=== PATIENT | male | born 1940 | race Caucasian/White ===

== ENCOUNTER 2020-02-28 01:35 | Emergency (ER) | payer OTHER ==
[~2020-02-28] VITALS: Ht 162.6 cm; Wt 63.0 kg
[~2020-02-28 01:35] MED LIST: DIOVAN320 MG; FENOFIBRATE145 MG; METFORMIN HCL500 M1; METOPROLOL SUC100 MG; NORVASC5 MG; PENTOXIFYLLINE400 MG
[2020-02-28] MEDS ORDERED: ASPIR 8181 MG (01:49)
[2020-02-28] MEDS ORDERED: MOBIC15 MG PO (04:46)
== END 2020-02-28 04:51 | disposition home or self-care (01) ==
LOC: ER 01:35
DX: K40.90 Unilateral inguinal hernia, without obstruction or gangrene, not specified as recurrent (principal)

== ENCOUNTER 2020-05-11 14:50 | Emergency (ER) | payer OTHER ==
[~2020-05-11] VITALS: Ht 160 cm; Wt 61.2 kg
[~2020-05-11 14:50] MED LIST changes: +ASPIR 8181 MG; +MOBIC15 MG PO
[2020-05-11] MEDS ORDERED: AMLODIPINE BESY10 MG PO (15:18)
[2020-05-11] MEDS ORDERED: ATORVASTATIN CA10 MG PO (15:18)
== END 2020-05-11 20:03 | disposition home or self-care (01) ==
LOC: ER 14:50
DX: B34.9 Viral infection, unspecified (principal); R00.2 Palpitations; I50.9 Heart failure, unspecified

== ENCOUNTER 2020-09-24 09:45 | Inpatient (IN) | payer OTHER ==
[~2020-09-24] VITALS: Ht 162.6 cm; Wt 57.2 kg
[~2020-09-24 09:45] MED LIST changes: +AMLODIPINE BESY10 MG PO; +ATORVASTATIN CA10 MG PO
[2020-09-24] MEDS ORDERED: DIOVAN320 MG (10:23)
[2020-09-24] MEDS ORDERED: TOPROL XL200 MG (10:23)
[2020-09-24] MEDS ORDERED: PLAVIX75 MG (10:24)
[2020-09-24] MEDS ORDERED: CRESTOR40 MG (10:25)
[2020-09-24] MEDS ORDERED: KEFLEX750 MG (10:27)
[2020-09-24] MEDS ORDERED: DULCOLAX10 MG (10:28)
== END 2020-09-27 13:27 | disposition home or self-care (01) | DRG 393 ==
LOC: ER 09:45 → SEC-K 20:35 → MEDI 09-25 16:43
PROVIDERS: ADMIT Internal Medicine; ATTEND Internal Medicine
PROC: BW21Y0Z Computerized Tomography (CT Scan) of Abdomen and Pelvis using Other Contrast, Unenhanced and Enhanced (ICD-10-PCS; principal; 2020-09-24)
DX: K40.90 Unilateral inguinal hernia, without obstruction or gangrene, not specified as recurrent (principal); K57.31 Diverticulosis of large intestine without perforation or abscess with bleeding; K62.5 Hemorrhage of anus and rectum; I11.9 Hypertensive heart disease without heart failure; I25.10 Atherosclerotic heart disease of native coronary artery without angina pectoris; E11.9 Type 2 diabetes mellitus without complications; E78.5 Hyperlipidemia, unspecified; R82.71 Bacteriuria; K59.00 Constipation, unspecified

== ENCOUNTER 2021-01-08 07:12 | Day surgery (SDC) | payer OTHER ==
[~2021-01-08 07:12] MED LIST changes: +ADULT LOW DOSE81 M1 PO; +AMLO PO; +CRESTOR40 MG; +CRESTOR40 MG PO; +DIOVAN320 MG PO; +DULCOLAX10 MG; +FORTAMET500 MG PO; +KEFLEX750 MG; +PLAVIX75 MG; +PLAVIX75 MG PO; +RESTORIL30 MG PO; +TOPROL XL200 MG
[2021-01-08] MEDS ORDERED: TYLENOL ARTHRI650 MG PO (11:48)
[2021-01-08] MEDS ORDERED: MIRALAX17 GM PO (11:48)
[2021-01-08] MEDS ORDERED: ULTRAM50 MG PO (11:48)
== END 2021-01-08 19:00 | disposition home or self-care (01) ==
LOC: CIR.AMB 07:12
PROVIDERS: ATTEND Surgery
DX: K40.30 Unilateral inguinal hernia, with obstruction, without gangrene, not specified as recurrent (principal); D17.6 Benign lipomatous neoplasm of spermatic cord; Z20.822 Contact with and (suspected) exposure to COVID-19

== ENCOUNTER 2021-03-29 14:56 | Emergency (ER) | payer OTHER ==
[~2021-03-29] VITALS: Ht 162.6 cm; Wt 59.0 kg
[~2021-03-29 14:56] MED LIST changes: +MIRALAX17 GM PO; +TYLENOL ARTHRI650 MG PO; +ULTRAM50 MG PO
[2021-03-29] MEDS ORDERED: AMLODIPINE-OLM1 EAC3 (15:54)
== END 2021-03-29 20:00 | disposition home or self-care (01) ==
LOC: ER 14:56
DX: G89.11 Acute pain due to trauma (principal); S51.82 Laceration with foreign body of forearm; S51.022S Laceration with foreign body of left elbow, sequela; S50.8 Other superficial injuries of forearm; S50.312S Abrasion of left elbow, sequela; W18.09XS Striking against other object with subsequent fall, sequela

== ENCOUNTER 2021-11-24 15:16 | Emergency (ER) | payer OTHER ==
[~2021-11-24] VITALS: Ht 162.6 cm; Wt 63.5 kg
[~2021-11-24 15:16] MED LIST changes: +AMLODIPINE-OLM1 EAC3
== END 2021-11-24 18:41 | disposition home or self-care (01) ==
LOC: ER 15:16
DX: R10.32 Left lower quadrant pain (principal); E11.9 Type 2 diabetes mellitus without complications; I10 Essential (primary) hypertension; E78.00 Pure hypercholesterolemia, unspecified; Z79.84 Long term (current) use of oral hypoglycemic drugs; Z79.02 Long term (current) use of antithrombotics/antiplatelets; Z79.82 Long term (current) use of aspirin

== ENCOUNTER 2024-08-18 06:23 | Emergency (ER) | payer OTHER ==
[~2024-08-18] VITALS: Ht 160 cm; Wt 64.4 kg
[2024-08-18] MEDS ORDERED: DIOVAN320 MG PO (06:46)
[2024-08-18] MEDS ORDERED: CARVEDILOL12.5 MG (06:46)
[2024-08-18] MEDS ORDERED: HYDRALAZINE HCL10 MG PO (06:47)
[2024-08-18] MEDS ORDERED: FARXIGA10 MG PO (06:47)
[2024-08-18 08:52] LABS: HEMATOCRIT 43.1 % (39.0-48.0); HEMOGLOBIN 14.5 g/dL (13-16.00); MEAN CORPUSCULAR HEMOGLOBIN 30.7 pg (27.00-32.0); MEAN CORPUSCULAR HGB CONC 33.7 g/dl (32.0-36.0); RED BLOOD COUNT 4.74 M/uL (4.00-6.00); RED CELL DISTRIBUTION WIDTH 13.9 % (11.5-14.5)
[2024-08-18 09:43] LABS: PLATELET COUNT 117 K/uL (150-450)
[2024-08-18 09:54] LABS: ALBUMIN 3.6 gm/dL (3.4-5.0); BILIRUBIN TOTAL 0.6 mg/dL (0.3-1.2); CALCIUM 9.2 mg/dL (8.5-10.1); CREATININE SERUM 0.89 mg/dL (0.70-1.30); GFR 82.04; GLOBULINA 3.5 G/DL (2.4-3.5); POTASSIUM 4.07 mEq/L (3.5-5.1); TOTAL PROTEIN 7.1 gm/dL (6.4-8.2)
== END 2024-08-18 10:25 | disposition home or self-care (01) ==
LOC: ER 06:26
PROVIDERS: General Practice
DX: I10 Essential (primary) hypertension (principal); E78.00 Pure hypercholesterolemia, unspecified; E11.9 Type 2 diabetes mellitus without complications; Z79.84 Long term (current) use of oral hypoglycemic drugs

== ENCOUNTER 2025-01-17 06:31 | Emergency (ER) | payer OTHER ==
[~2025-01-17] VITALS: Ht 162.6 cm; Wt 65.3 kg
[~2025-01-17 06:31] MED LIST changes: +CARVEDILOL12.5 MG; +FARXIGA10 MG PO; +HYDRALAZINE HCL10 MG PO
[2025-01-17] MEDS ORDERED: AMLODIPINE BESY10 MG PO (07:32)
== END 2025-01-17 09:10 | disposition home or self-care (01) ==
LOC: ER 06:45
DX: S61.412A Laceration without foreign body of left hand, initial encounter (principal); S69.80XA Other specified injuries of unspecified wrist, hand and finger(s), initial encounter; W45.8XXA Other foreign body or object entering through skin, initial encounter; X58.XXXA Exposure to other specified factors, initial encounter; Y93.89 Activity, other specified; Y92.89 Other specified places as the place of occurrence of the external cause; Y99.8 Other external cause status; I65.23 Occlusion and stenosis of bilateral carotid arteries; M25.539 Pain in unspecified wrist; I10 Essential (primary) hypertension; E11.9 Type 2 diabetes mellitus without complications

== ENCOUNTER → 2025-01-24 | Emergency (ER) | payer OTHER ==
[~2025-01-24] VITALS: Ht 162.6 cm; Wt 65.3 kg
== END | disposition home or self-care (01) ==
LOC: ER 08:09
DX: M79.641 Pain in right hand (principal); I10 Essential (primary) hypertension; E11.9 Type 2 diabetes mellitus without complications; Z95.1 Presence of aortocoronary bypass graft

== ENCOUNTER 2025-01-30 07:21 | Outpatient (CLI) | payer OTHER | END 2025-01-30 07:26 | disposition home or self-care (01) | LOC: RAD 07:21 | PROVIDERS: ATTEND Orthopaedic Surgery | DX: S52.531A Colles' fracture of right radius, initial encounter for closed fracture (principal) ==

== ENCOUNTER → 2025-03-27 06:27 | Outpatient (CLI) | payer OTHER ==
[2025-03-27 08:55] LABS: ALT/SGPT 17.0 U/L (12-78); AST/SGOT 16.0 U/L (15-37); BILIRUBIN TOTAL 0.41 mg/dL (0.3-1.2); BUN CREA RATIO 10.0 (7.0-25.0); CREATININE SERUM 1.18 mg/dL (0.70-1.30); GFR 59.1; GLOBULINA 3.3 G/DL (2.4-3.5); GLUCOSE FASTING 108.0 mg/dL (65-100); OSMOLALITY SERUM 282.0 MOSM/KG (275-295)
[2025-03-28 15:08] LABS: CALCIUM IONIZED 4.8 mg/dL (4.5-5.6)
== END | disposition home or self-care (01) ==
LOC: LAB 06:27
PROVIDERS: ATTEND Orthopaedic Surgery
DX: E55.9 Vitamin D deficiency, unspecified (principal); E56.1 Deficiency of vitamin K; E21.3 Hyperparathyroidism, unspecified; E88.9 Metabolic disorder, unspecified; M81.8 Other osteoporosis without current pathological fracture